=== PATIENT | male | born 2000 | race Caucasian/White ===

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

== ENCOUNTER 2024-04-13 13:00 | Outpatient (CLI) | payer OTHER, SELFPAY | END 2024-04-13 13:01 | disposition home or self-care (01) | LOC: SLEEP 13:03 | PROVIDERS: PCP Family Medicine; Visit Provider Family Medicine | DX: G47.33 Obstructive sleep apnea (adult) (pediatric) (principal) | CPT/HCPCS: G0399 ==

== ENCOUNTER → 2025-02-02 10:34 | Outpatient (BNVA) | payer OTHER, SELFPAY | PROVIDERS: PCP Family Medicine; Visit Provider Family Medicine | DX: M25.50 Pain in unspecified joint (principal) | CPT/HCPCS: 80053; 84439; 84443; 85025; 85651; 86140; 86200; 86431 ==

== ENCOUNTER → 2025-03-09 14:40 | Outpatient (BNVA) | payer OTHER, SELFPAY | PROVIDERS: PCP Family Medicine; Visit Provider Family Medicine | DX: M25.59 Pain in other specified joint (principal) | CPT/HCPCS: 86160 ==